=== PATIENT | male | born 1960 | race Two or more races ===

== ENCOUNTER 2016-11-07 22:01 | Emergency (ER) ==
[2016-11-07 22:11] VITALS: BP 132/86; TEMP 98.2; BMI 32.1
[2016-11-07] MEDS ORDERED: LIDOCAINE 1 % AMP 5 ML (SUTURES) SQ STA (22:31)
[2016-11-07] MEDS ORDERED: BOOSTRIX IM ONE (23:32)
--- NOTE | 2016-11-07 23:33 | ED.PDOC ---
General ED Provider: Dr. JOSEE REYES Chief Complaint: Finger Laceration Stated Complaint: Patient presents to the Er with a laceration on the index finger with a Knife. has some bleeding controlled with pressure. Time Seen by Physician: 23:30 Mode of Arrival: Walk-In Information Source: Patient Exam Limitations: No limitations Nursing and Triage Documentation Reviewed and Agree: Yes Skin Complaint Exam - Laceration/Abrasion/Hand Complaint/Exam Location of Injury: Left, Digit #2 Mechanism of Injury: Laceration, Sharp trauma Onset/Duration: 1 hour Symptoms Are: Still present Initial Severity: Mild Current Severity: Mild Aggravating: Movement Alleviating: Compression Associated Signs and Symptoms: Denies: Fever, Chills, Erythema, Numbness, Tingling Related History: Reports: Right hand dominant Hand Picture: 1 - U shapped 3 cm laceration with good range of motion on the distal finger. Differential Diagnoses: Laceration Review of Systems - Review Of Systems Constitutional: Reports: No symptoms Eyes: Reports: No symptoms Ears, Nose, Mouth, Throat: Reports: No symptoms Respiratory: Reports: No symptoms Cardiac: Reports: No symptoms Skin: Reports: Other (lacaration. ) All Other Systems: Reviewed and Negative Past Medical History - Past Medical History Endocrine: Reports: None Cardiovascular: Reports: None Respiratory: Reports: None Hematological: Reports: None Gastrointestinal: Reports: None Genitourinary: Reports: None Neuro/Psych: Reports: None Musculoskeletal: Reports: None Cancer: Reports: None - Surgical History General Surgical History: Reports: None - Family History Family History: Reports: None - Social History Smoking Status: Never smoker Hx Substance Use: No Alcohol Screening: None - Immunizations Tetanus Shot up to Date: No Physical Exam - Physical Exam Appearance: Well-appearing, Well-nourished Pain Distress: Moderate Eyes: Conjunctiva clear Respiratory: Airway patent, Breath sounds clear, Breath sounds equal, Respirations nonlabored Cardiovascular: RRR, Pulses normal, No rub, No murmur GI/: Soft, Nontender, No masses, Bowel sounds normal, No Organomegaly Musculoskeletal: Normal strength, ROM intact, No edema, No calf tenderness Skin: Warm, Dry, Normal color Neurological: Sensation intact, Motor intact (on the Left index finger. ), Alert , Oriented Psychiatric: Anxious Procedures - Laceration/Wound Repair Left index finger Wound Description: Flap Wound Length (cm): 3 cm Wound Depth: 0.3 Wound Explored: Clean Wound Irrigated: No Wound Prep: Hibiclens Anesthesia: Lidocaine Undermining: Minimal Wound Margins: Revised Wound Repaired With: Sutures Suture Size and Type: Ethlon Number of Sutures: 12 (running ) Progress: tolerated procedure well Critical Care Note - Critical Care Note Total Time (mins): 0 Course - Course Orders, Labs, Meds: Orders Category Date Time Status Diphth,Pertuss(Acell),Tet Vac [Boostrix] MEDS 11/07/16 23:32 Discontinued 0.5 ml IM .ONCE ONE Lidocaine HCl/Pf [Lidocaine 1 % Amp 5 ml (Sutures)] MEDS 11/07/16 22:31 Discontinued 5 ml SQ ONCE STA Medications Discontinued Medications Generic Name Dose Route Start Last Admin Trade Name Freq PRN Reason Stop Dose Admin Diphtheria/Pertussis/Tetanus Vacc 0.5 ml 11/07/16 23:32 11/07/16 23:36 Boostrix IM 11/07/16 23:33 0.5 ml .ONCE ONE Administration Lidocaine HCl 5 ml 11/07/16 22:31 11/07/16 23:04 Lidocaine 1 % Amp 5 Ml (Sutures) SQ 11/07/16 22:32 5 ml ONCE STA Administration Vital Signs: Temp Pulse Resp BP Pulse Ox 11/07/16 22:02 98.2 F 82 20 132/86 96 Departure - Departure Time of Disposition: 23:30 Disposition: HOME SELF-CARE Discharge Problem: Laceration of finger Instructions: Finger Laceration (ED) Condition: Good Pt referred to PMD for follow-up: Yes Additional Instructions: have sutures removed in 7-10 days Return to the ER if worse. or you see signs of infection. Allergies/Adverse Reactions: Allergies No Known Allergies Allergy (Unverified 11/07/16 22:08) Home Medications: Ambulatory Orders 1 [No Reported Medications] 11/07/16 Disposition Discussed With: Patient
== END 2016-11-07 23:59 | disposition home or self-care (01) ==
LOC: ED 22:01
DX: S61.211A Laceration without foreign body of left index finger without damage to nail, initial encounter (principal); W26.0XXA Contact with knife, initial encounter
CPT/HCPCS: 90471; 99283